=== PATIENT | female | born 1955 | race African-American/Black ===

== ENCOUNTER 2018-11-13 06:06 | Outpatient (CLI) | payer OTHER ==
[~2018-11-13] VITALS: Ht 160 cm; Wt 80.3 kg
[~2018-11-13 06:06] MED LIST: CLONAZEPAM 0.50.5 M1 PO; COLACE100 MG PO; FLONASE 0.05%50 MCG NASAL; GINKGO BILOBA120 MG PO; MECLIZINE HCL25 MG PO; METHOCARBAMOL500 M2 PO; MOBIC15 MG PO; RANITIDINE 150150 M1 PO; SYMBICORT160 MCG/4. INH; TUMS PO; VENTOLIN HFA 1818 GM INH; VITAMIN D31000 UNI2 PO
[2018-11-13 06:30] VITALS: BP 157/75
== END 2018-11-13 09:45 | disposition home or self-care (01) ==
LOC: CATH 06:06 → TBA 06:51 → OR 09:43 → EDSTATUS 09:45 → CATH 09:45
DX: J47.9 Bronchiectasis, uncomplicated (principal); R91.8 Other nonspecific abnormal finding of lung field; K21.9 Gastro-esophageal reflux disease without esophagitis; Z87.891 Personal history of nicotine dependence; Z88.8 Allergy status to other drugs, medicaments and biological substances; Z79.899 Other long term (current) drug therapy
CPT/HCPCS: 70005

== ENCOUNTER → 2020-07-25 | Outpatient (CLI) | payer OTHER ==
[~2020-07-25] MED LIST changes: +ALLERPLEX PO; +CALCIUM500 MG PO; +CHILDREN'S ZYRT10 M1 PO; +FAMOTIDINE 40 M40 M1 PO; +FLAX OIL1000 MG PO; +FLONASE 0.05%50 MCG NARES; +FLUOCINONIDE60 GM TOP; +KLOR-CON 1010 MEQ PO; +LIPITOR10 MG PO; +LUMIGAN5 ML OPHTHALMIC; +OMEPRAZOLE 20 M20 M1 PO; +PROAIR HFA8.5 GM INH; +REMERON15 M2 PO; -TUMS PO; -VITAMIN D31000 UNI2 PO; +VITAMIN D375 MCG PO; +[UNRECOGNIZED DRUG - OTHER] PO
== END ==
LOC: LAB 08:36
PROVIDERS: ATTEND Pediatrics
DX: Z01.812 Encounter for preprocedural laboratory examination (principal); Z20.822 Contact with and (suspected) exposure to COVID-19

== ENCOUNTER 2020-07-28 06:26 | Outpatient (CLI) | payer OTHER ==
[~2020-07-28] VITALS: Ht 160 cm; Wt 51.4 kg
[2020-07-28 08:10] VITALS: BP 133/97
[2020-08-09] MEDS ORDERED: MIRTAZAPINE15 M2 PO (14:31)
[2020-08-12] MEDS ORDERED: MAG-OXIDE400 MG PO (12:48)
[2020-08-12] MEDS ORDERED: HYDROCODON-ACE1 EAC7 PO (12:48)
[2020-08-12] MEDS ORDERED: K-DUR 20 MEQ T20 MEQ PO (12:48)
[2020-08-12] MEDS ORDERED: PRENATAL PO (12:48)
[2020-08-12] MEDS ORDERED: CARDIZEM CD120 MG PO (12:48)
== END 2020-07-28 12:45 | disposition home or self-care (01) ==
LOC: TBA 06:26 → PUL 06:26 → OR 12:28 → PUL 12:35 → EDSTATUS 12:36 → PUL 12:45
PROVIDERS: ATTEND Pediatrics
DX: J98.4 Other disorders of lung (principal); Z53.8 Procedure and treatment not carried out for other reasons; J45.909 Unspecified asthma, uncomplicated; E78.00 Pure hypercholesterolemia, unspecified; K21.9 Gastro-esophageal reflux disease without esophagitis; Z98.890 Other specified postprocedural states; Z79.899 Other long term (current) drug therapy; Z85.3 Personal history of malignant neoplasm of breast; Z87.891 Personal history of nicotine dependence; Z90.710 Acquired absence of both cervix and uterus; Z88.8 Allergy status to other drugs, medicaments and biological substances
CPT/HCPCS: 50010; 62110; 62900; 70005

== ENCOUNTER → 2020-08-04 | Outpatient (CLI) | payer OTHER | LOC: CAT 11:28 | PROVIDERS: ATTEND Pediatrics | DX: R91.8 Other nonspecific abnormal finding of lung field (principal); J84.10 Pulmonary fibrosis, unspecified; J98.4 Other disorders of lung ==

== ENCOUNTER → 2020-08-04 | Outpatient (CLI) | payer OTHER | LOC: LAB 11:32 | PROVIDERS: ATTEND Pediatrics | DX: Z20.822 Contact with and (suspected) exposure to COVID-19 (principal) ==

== ENCOUNTER → 2020-08-05 | Outpatient (CLI) | payer OTHER ==
[~2020-08-05] VITALS: Ht 160 cm; Wt 49.9 kg
[~2020-08-05] MED LIST changes: +CARDIZEM CD120 MG PO; +HYDROCODON-ACE1 EAC7 PO; +K-DUR 20 MEQ T20 MEQ PO; +MAG-OXIDE400 MG PO; +MIRTAZAPINE15 M2 PO; +PRENATAL PO
[2020-08-05 09:39] VITALS: BP 142/78
== END | disposition home or self-care (01) ==
LOC: PUL 08:50 → OR 10:31 → EDSTATUS 13:20 → PUL 13:27 → GI 15:10 → OR 16:10
PROVIDERS: ATTEND Pediatrics
DX: R91.8 Other nonspecific abnormal finding of lung field (principal); Z53.9 Procedure and treatment not carried out, unspecified reason; J45.909 Unspecified asthma, uncomplicated; E78.00 Pure hypercholesterolemia, unspecified; K21.9 Gastro-esophageal reflux disease without esophagitis; Z98.890 Other specified postprocedural states; Z79.899 Other long term (current) drug therapy; Z87.891 Personal history of nicotine dependence; Z85.3 Personal history of malignant neoplasm of breast; Z90.710 Acquired absence of both cervix and uterus

== ENCOUNTER 2020-08-09 06:35 | Inpatient (IN) | payer OTHER ==
[2020-08-09] VITALS (13 sets, daily range): BP systolic 87–151; BP diastolic 49–88
[~2020-08-09] VITALS: Ht 160 cm; Wt 53.8 kg
[~2020-08-09 06:35] MED LIST changes: -CARDIZEM CD120 MG PO; -HYDROCODON-ACE1 EAC7 PO; -K-DUR 20 MEQ T20 MEQ PO; -MAG-OXIDE400 MG PO; -MIRTAZAPINE15 M2 PO; -PRENATAL PO
[2020-08-09] MEDS ORDERED: MIRTAZAPINE15 M2 PO ×2 (14:31)
--- NOTE | 2020-08-09 15:11 | NUR ---
ON & OFF BEDPAN.PT IN A TREMENDOUS AMT OF PAIN (01/15),SPLINTING RESP'S,ALMOST IN TEARS. CONTACTED RE: ? 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 --VW
[2020-08-09 15:38] LABS: HEMATOCRIT 37.5 % (37.0-47.0); HEMOGLOBIN 12.5 gm/dL (12.0-15.0); MCH 31.6 pg (26.0-34.0); MCHC 33.3 g/dL (28.0-37.0); MCV 94.9 fL (80.0-100.0); RBC 3.95 mil/uL (4.20-5.00); RDW 12.9 % (10.5-14.5); WBC 9.8 thou/uL (4.0-11.0)
[2020-08-09 15:53] LABS: APTT 25.4 Seconds (24.5-32.8); INR 0.98; PROTIME 10.7 Seconds (10.5-12.1)
[2020-08-09 16:24] LABS: ALBUMIN 3.6 g/dL (3.4-5.0); CALCIUM 8.8 mg/dL (8.5-10.1); MAGNESIUM 1.3 mg/dL (1.8-2.4); POTASSIUM 3.5 mmol/L (3.5-5.1); TOTAL BILIRUBIN 0.4 mg/dL (0.2-1.0); TOTAL PROTEIN 7.7 g/dL (6.4-8.2)
--- NOTE | 2020-08-09 18:36 | NUR ---
PATIENT ADMIT TO ICU FROM [facility]. CHEST TUBE IN PLACE ON ARRIVAL, AIR LEAK PRESENT. 2L O2 VIA NASAL CANNULA. 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 PATIENT BROUGHT TO UNIT WITH BAG OF CLOTHING, SHOES, CELL PHONE, PURSE, WIG AND HAT. DAUGHTER AND SON AT BEDSIDE. UPDATED BY PHYSICIAN AND NURSE. WILL CONTINUE TO MONITOR.
[2020-08-10] VITALS (23 sets, daily range): BP systolic 94–142; BP diastolic 49–74
--- NOTE | 2020-08-10 03:03 | NUR ---
ASSESSMENT: PT REMAIN ALERT AND ORIENT TIMES FOUR. DOES USE THE BEDPAN, NO BM THIS SHIFT. STATE THAT SERVICE SUPERVISOR IS ADEQUATE RELIEF FOR PAIN. RATE PAIN ON THE RIGHT SIDE (C-TUBE) SITE 4-6/10 ON THE NUMERIC PAIN SCALE. VIC. TURNS SELF IN BED. REFUSED BATH TONIGHT, STATE THAT SHE WOULD TAKE ONE LATER IN THE MORNING. TOLERATING PO INTAKE., ADVANCE TO A REG DIET BEGINNING IN THE AM. VSS, AFBRILE. SR PER MONITOR. SERVICE SUPERVISOR INFUSING WITHOUT DIFFICULTY VIA A PERIPHERAL IV. REMAINS ON [address] LITERS. SATS 96-100% CT INTACT WITH A + AIR LEAK. SLOW PROGRESS TOWARDS DC GOALS, WILL CONTINUE TO MONITOR.
--- NOTE | 2020-08-10 12:25 | NUR ---
chart review. cm tried to visit with pt and she was on phone call and then resting. cm spoke with her daughter christopher via phone call, intro to cm and dcp. pt lives at home and he daughter is staying with her currently. " 5 steps enter from front door, then 8 to garage, 5 from 2nd to 3rd floor and 8 from 3rd to middle level"/daughter. pt was independent prior to hospital. no dm, manage own medication and able to drive. no hh or rehab in the past. no anticipated needs, will cont following as needed for dc needs. dcp home.
[2020-08-11 05:01] VITALS: BP 105/74
--- NOTE | 2020-08-11 05:26 | NUR ---
RECIEVED PATIENT PER WHEELCHAIR FROM ICU AT 1910. TRANSFERS WITH ONE ASSIST. GAIT STEADY. 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 DENIES FURTHER NEED FOR PAIN MEDICATION AT THIS TIME. CHEST TUBE TO -20 SUCTION INTACT WITH SMALL AIR LEAK PRIOR TO TX. WORKING ON GOALS AND PLAN OF CARE FOR NOC. CONTINUE TO ASSES CLOSELY.
[2020-08-11 08:05] VITALS: BP 101/60
[2020-08-11 11:27] VITALS: BP 111/64
--- NOTE | 2020-08-11 12:02 | NUR ---
PT PULLED CHEST TUBE OUT THIS MORNING. DR AWARE AND PLACED DRESSING TO RIGHT SIDE OF CHEST. PT DENIES ANY PAIN/SOA AT THIS TIME.
[2020-08-11 16:04] VITALS: BP 130/68
--- NOTE | 2020-08-11 17:07 | PATH ---
[address] [place] [address] PATHOLOGY RPT PROCEDURE Name: AUGUSTINE DIAZKALPANA Room #: 203-P ADM IN M.R.#: [id number] Admission: 08/09/20 Date of : 51 Discharge: Report #: [id number] Path Case #: [id number] [facility] Accession Number: [id number] . 01 Material submitted: . lung - CT GUIDED RIGHT LUNG MASS. Modifiers: right . 02 Diagnosis: Lung, right lung mass, CT-guided biopsy: - Non-necrotizing granulomatous inflammation with giant cells and rare focus with polarizable material, see comment. - Benign alveolated lung parenchyma present within the background. - Negative for dysplasia or malignancy. . (IUV:mml; 08/10/2020) QLM 08/10/2020 1213 Local . 02 Comment: Examination shows scattered non-necrotizing granulomata with epithelioid histiocytes as well as chronic inflammation. AFB and GMSF special stains are ordered on block A3 and the results of these will be reported in an addendum to follow. History of sarcoidosis as well as breast cancer is provided by Dr. Israel. . Findings are conveyed to Dr. Israel on the morning of 08/10/2020. . (IUV:mml; 08/10/2020) . 02 Addendum: . Acid fast bacillus and Gomori methenamine silver stains performed on A3 are negative for mycobacterial as well as fungal elements, respectively. (IUV:pit 08/11/2020) . Professional services performed by [facility] at , [address] [place], [place] [address], [place] [address]. Technical services performed by [facility] at [address] [place] [address], [address], [place] [address]. MBR/08/11/2020 Addendum Electronically Signed by Dia Rose MD, Pathologist . 02 Electronically signed: . Dia Rose MD, Pathologist NPI- [id number] . 01 Gross description: . The specimen is received in formalin, labeled "Kalpana [place], CT-guided right lung mass" and consist of multiple soft petersen tissue cores measuring up to 1.2 x less than 0.1cm entirely submitted in A1-A3.([facility]; [address] [place] [address] PATHOLOGY RPT PROCEDURE Name: KALPANA SARAVIA Room #: 203-P ADM IN M.R.#: [id number] Admission: 08/09/20 Date of : 51 Discharge: Report #: [id number] Path Case #: [id number] 08/09/2020) MARTINA/MARTINA 08/09/2020 2131 Local . 02 Pathologist provided ICD-10: J18.9 . 02 CPT . 264109, 789159, 688171 Specimen Comment: A courtesy copy of this report has been sent to [phone] Specimen Comment: [phone] Specimen Comment: Report sent to / DR OAKLEY Specimen Comment: A duplicate report has been generated due to demographic updates. Performed at: [address] [facility], [place] [id number] MD Micha Leon MD Phone: [phone] Performed at: [address] [id number] MD Dia Rose MD Phone: [phone]
--- NOTE | 2020-08-11 17:12 | NUR ---
Case discussed with the care team. Pt did well with therapy today and chest tube is now out. Pt is on RA and cxr good. Pt up ad yumiko and will obs overnight for possible dc home tomorrow. No hh or o2 indicated at this time. Outpt f/u anticipated.
[2020-08-11 19:04] VITALS: BP 112/64
[2020-08-12 04:08] VITALS: BP 126/73
--- NOTE | 2020-08-12 04:30 | NUR ---
PATIENT UP IN CHAIR WATCHING TV UNTIL BEDTIME. SLEPT MOST OF SHIFT. UP AD ALESHIA IN ROOM WITHOUT COMPLAINTS OF PAIN OR SHORTNESS OF AIR. RIGHT CHEST DSG REMAINS C/D/I. WORKING ON GOALS AND PLAN OF CARE FOR NOC. PLANS FOR DISCHARGE TODAY. CONTINUE TO ASSES CLOSELY.
[2020-08-12 09:00] VITALS: BP 106/68
--- NOTE | 2020-08-12 10:12 | NUR ---
PT IS AXOX4, PLEASANT; HAS SOME PAIN, BUT REFUSES PAIN MEDICATIONS. HR ELEVATED TO 120-140. DR PERSAUD CONSULTED. EKG ORDERED. MONEY MARKET CLERK SHOWS ST WITH 1AVB, EKG SHOWS JUNCT TACHY. BMP AND MAG LAB ORDERED. RX CARDIZEM ORDERED. R RIB CHEST TUBE DRESSING CHANGED: NO DRAINAGE, C/D, TAPE FALLING OFF. WILL CONTINUE TO MONITOR PT HR, PAIN MGMT.
[2020-08-12 10:34] LABS: CALCIUM 9.2 mg/dL (8.5-10.1); CREATININE 1.1 mg/dL (0.6-1.0); MAGNESIUM 1.4 mg/dL (1.8-2.4); POTASSIUM 3.3 mmol/L (3.5-5.1)
--- NOTE | 2020-08-12 10:43 | PATH ---
[facility] [address] [place] [address] PATHOLOGY RPT PROCEDURE Name: JOHNATHAN DIAZKALPANA Room #: 203-P ADM IN M.R.#: [id number] Admission: 08/09/20 Date of : 51 Discharge: Report #: [id number] Path Case #: [id number] [facility] Accession Number: [id number] . 01 Material submitted: . bronchus - RML TBNA SITE 2 TISSUE BIOPSY. Modifiers: L . 01 Clinical history: . RESP/BRONCH BRUSH LUNG NODULE BRONCHOSCOPY . 02 Diagnosis: Lung, right middle lobe, TBNA and biopsy (site 2): - Minute fragment of benign alveolated lung parenchyma. - Negative for malignancy. (IUV:pit 08/10/2020) QTP 08/10/2020 1207 Local . 02 Electronically signed: . Dia Rose MD, Pathologist NPI- [id number] . 01 Gross description: . The specimen is received in formalin, labeled "Johnathan Martinesjeff Kalpana, CECELIA biopsy TBNA forceps site 2" and consist of 1 soft petersen tissue cores measuring up to 0.1 x less than 0.1cm entirely submitted in A1.([facility]; 08/09/2020) MARTINA/MARTINA 08/09/2020 2124 Local . 02 Pathologist provided ICD-10: R91.1 . 02 CPT . 326853 Specimen Comment: A courtesy copy of this report has been sent to [phone] Specimen Comment: Report sent to Specimen Comment: A duplicate report has been generated due to demographic updates. Performed at: [address], [place] [id number] MD Micha Leon MD Phone: [phone] Performed at: [address] [id number] MD Dia Rose MD Phone: [phone]
[2020-08-12 12:10] VITALS: BP 112/66
[2020-08-12] MEDS ORDERED: MAG-OXIDE400 MG PO ×2 (12:48)
[2020-08-12] MEDS ORDERED: PRENATAL PO ×2 (12:48)
[2020-08-12] MEDS ORDERED: K-DUR 20 MEQ T20 MEQ PO ×2 (12:48)
[2020-08-12] MEDS ORDERED: HYDROCODON-ACE1 EAC7 PO ×2 (12:48)
[2020-08-12] MEDS ORDERED: CARDIZEM CD120 MG PO ×2 (12:48)
[2020-08-12 13:08] VITALS: BP 112/66
--- NOTE | 2020-08-12 13:23 | EKG ---
[address] [address] ELECTROCARDIOGRAM REPORT Name: KALPANA HAYES Room #: 203-P ADM IN M.R.#: [id number] Admission: 08/09/20 Attend Phys: Jasmeet Orr MD Discharge: Date of : 51 Report #: [id number] 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: KAREN : 1955 Requested By: Jasmeet Orr Order Number: [id number] : Carlos Garrison Measurements Intervals [place] Rate: 121 P: ID: QRS: -2 QRSD: 94 T: 76 QT: 439 QTc: 623 Interpretive Statements Sinus tachycardia LVH w/ repol abnormalities, possible ischemia Prolonged QT interval No previous ECG available for comparison Electronically Signed On 08-12-2020 13:23:01 CDT by Carlos Garrison [email or web address] <ELECTRONICALLY SIGNED> By: Carlos Garrison MD, [facility] 08/12/20 1323 0923 2 Carlos Garrison MD, FACC /EPI
--- NOTE | 2020-08-12 17:06 | PATH ---
[facility] [address] [place] [address] PATHOLOGY RPT PROCEDURE Name: KALPANA HAYES Room #: 203-P DIS IN M.R.#: [id number] Admission: 08/09/20 Date of : 51 Discharge: 08/12/20 Report #: [id number] Path Case #: [id number] Note [facility] Accession Number: [id number] TESTS RESULT FLAG UNITS REF RANGE LAB Clinician Provided Cytology Information No. of containers..01 Other (Miscellaneous) Source: BRONCH BRUSH DIAGNOSIS: BRONCH BRUSH NEGATIVE FOR MALIGNANT EPITHELIAL CELLS. REACTIVE BRONCHIAL CELLS ARE PRESENT. SCANT CELLULARITY. Pathologist ICD10: 02 R91.8 Signed out by: Dia Rose MD, Pathologist NPI- [id number] Performed by: Asya Scott Credit Assessment Analyst ([facility]) Gross description: 01 5ML, CLR LIGHT RED, 1 TP /LCS 08/11/20201951 Local FLAG LEGEND: L-Low Normal,H-High Normal,LL-Alert Low,HH-Alert High <-Panic Low,>-Panic High,A-Abnormal,AA-Critical Abnormal Performed at: [address] [place] [address] Micha Leon MD, [address] [address] Dia Rose MD, Specimen Comment: A courtesy copy of this report has been sent to [phone] Specimen Comment: Report sent to Performed at: [address], [place], [place] [id number] MD Micha Leon MD Phone: [phone]
== END 2020-08-12 14:30 | disposition home or self-care (01) | DRG 199 ==
LOC: PUL 06:35 → TBA 06:39 → PUL 09:59 → ICU 13:39 → 2N 13:39
PROVIDERS: ADMIT Internal Medicine; ATTEND Internal Medicine
PROC: 0BD38ZX Extraction of Right Main Bronchus, Via Natural or Artificial Opening Endoscopic, Diagnostic (ICD-10-PCS; principal; 2020-08-09)
PROC: 0BBD3ZX Excision of Right Middle Lung Lobe, Percutaneous Approach, Diagnostic (ICD-10-PCS; principal; 2020-08-09)
PROC: 0BDC8ZX Extraction of Right Upper Lung Lobe, Via Natural or Artificial Opening Endoscopic, Diagnostic (ICD-10-PCS; principal; 2020-08-09)
PROC: 0BB58ZX Excision of Right Middle Lobe Bronchus, Via Natural or Artificial Opening Endoscopic, Diagnostic (ICD-10-PCS; principal; 2020-08-09)
PROC: 0B9K8ZX Drainage of Right Lung, Via Natural or Artificial Opening Endoscopic, Diagnostic (ICD-10-PCS; principal; 2020-08-09)
PROC: 0BD78ZX Extraction of Left Main Bronchus, Via Natural or Artificial Opening Endoscopic, Diagnostic (ICD-10-PCS; principal; 2020-08-09)
PROC: 0W9930Z Drainage of Right Pleural Cavity with Drainage Device, Percutaneous Approach (ICD-10-PCS; principal; 2020-08-09)
DX: J93.83 Other pneumothorax (principal); J96.01 Acute respiratory failure with hypoxia; A31.8 Other mycobacterial infections; Z94.84 Stem cells transplant status; Y83.8 Other surgical procedures as the cause of abnormal reaction of the patient, or of later complication, without mention of misadventure at the time of the procedure; K21.9 Gastro-esophageal reflux disease without esophagitis; E78.00 Pure hypercholesterolemia, unspecified; J45.909 Unspecified asthma, uncomplicated; D86.9 Sarcoidosis, unspecified; R91.1 Solitary pulmonary nodule; E58 Dietary calcium deficiency; F32.9 Major depressive disorder, single episode, unspecified; E55.9 Vitamin D deficiency, unspecified; F41.1 Generalized anxiety disorder; Z88.1 Allergy status to other antibiotic agents; Z88.8 Allergy status to other drugs, medicaments and biological substances; Z90.710 Acquired absence of both cervix and uterus; Z87.891 Personal history of nicotine dependence; Z92.21 Personal history of antineoplastic chemotherapy; Z90.11 Acquired absence of right breast and nipple; Z85.3 Personal history of malignant neoplasm of breast; Z91.09 Other allergy status, other than to drugs and biological substances
CPT/HCPCS: 10078; 10081; 50010; 62110; 62900; 70005

== ENCOUNTER → 2020-08-17 | Outpatient (CLI) | payer OTHER ==
[~2020-08-17] MED LIST changes: +CARDIZEM CD120 MG PO; +HYDROCODON-ACE1 EAC7 PO; +K-DUR 20 MEQ T20 MEQ PO; +MAG-OXIDE400 MG PO; +MIRTAZAPINE15 M2 PO; +PRENATAL PO
== END ==
LOC: RAD 09:50
PROVIDERS: ATTEND Internal Medicine
DX: J84.10 Pulmonary fibrosis, unspecified (principal); J93.83 Other pneumothorax; R06.00 Dyspnea, unspecified

== ENCOUNTER → 2020-08-24 | Outpatient (CLI) | payer OTHER | LOC: RAD 13:59 | PROVIDERS: ATTEND Internal Medicine | DX: J95.811 Postprocedural pneumothorax (principal) ==